=== PATIENT | female | born 1965 | race Caucasian/White ===

== ENCOUNTER → 2018-07-29 | Outpatient (CLI) | payer OTHER ==
[~2018-07-29] MED LIST: ALBU90OI; ALBU90OI6; AMOX500 PO; ASPI325; ASPI325EC; AZIT500 PO; CLIN300 PO; ERGO400; FISH1000 PO; FLUT.05NI; GABA300 PO; Glucophage1000 MG; IBUP800 PO; INSDET100 SC; INSULANPEN SC; LEVO750 PO; LISI5; LISI5 PO; LOVA20 PO; METF500; METF500 PO; METF850 PO; OXYACE5T PO; RXHYDMOR2 PO; RXOXYACE PO; TRAJENTA PO
== END | disposition home or self-care (01) ==
LOC: LAB SHORT 11:28 → PLD 11:28
DX: L60.2 Onychogryphosis (principal); B35.1 Tinea unguium
CPT/HCPCS: 88305; 88312

== ENCOUNTER 2018-09-26 07:40 | Emergency (ER) | payer OTHER ==
[~2018-09-26] VITALS: Ht 172.7 cm; Wt 113.4 kg
[2018-09-26] MEDS ORDERED: INSULANPEN (08:16)
[2018-09-26] MEDS ORDERED: TRAZ50 PO (08:18)
[2018-09-26] MEDS ORDERED: Humalog100 UNIT/3 (08:18)
[2018-09-26] MEDS ORDERED: ASPI81CH PO (08:18)
[2018-09-26] MEDS ORDERED: Mupirocin22 GM TOP (08:31)
== END 2018-09-26 08:49 | disposition home or self-care (01) ==
LOC: ER 07:40
DX: L03.011 Cellulitis of right finger (principal); L08.9 Local infection of the skin and subcutaneous tissue, unspecified; E11.9 Type 2 diabetes mellitus without complications; F17.200 Nicotine dependence, unspecified, uncomplicated; Z91.040 Latex allergy status; Z88.1 Allergy status to other antibiotic agents; Z88.8 Allergy status to other drugs, medicaments and biological substances; Z88.5 Allergy status to narcotic agent; Z79.899 Other long term (current) drug therapy; Z79.82 Long term (current) use of aspirin; Z79.4 Long term (current) use of insulin
CPT/HCPCS: 99283

== ENCOUNTER 2018-12-04 00:03 | Emergency (ER) | payer OTHER ==
[~2018-12-04] VITALS: Ht 175.3 cm; Wt 127.0 kg
[~2018-12-04 00:03] MED LIST changes: +ASPI81CH PO; +Humalog100 UNIT/3; +INSULANPEN; +Mupirocin22 GM TOP; +TRAZ50 PO
[2018-12-04] MEDS ORDERED: MONT10T PO (00:34)
[2018-12-04] MEDS ORDERED: META800 PO (00:54)
[2018-12-04] MEDS ORDERED: DEXA4 PO (00:54)
== END 2018-12-04 01:11 | disposition home or self-care (01) ==
LOC: ER 00:03
DX: M54.12 Radiculopathy, cervical region (principal); E11.9 Type 2 diabetes mellitus without complications; Z88.1 Allergy status to other antibiotic agents; Z88.5 Allergy status to narcotic agent; Z91.040 Latex allergy status; Z79.82 Long term (current) use of aspirin; Z79.4 Long term (current) use of insulin; Z79.899 Other long term (current) drug therapy
CPT/HCPCS: 99283; J1100

== ENCOUNTER → 2019-06-09 | Outpatient (CLI) | payer OTHER ==
[~2019-06-09] MED LIST changes: +DEXA4 PO; +META800 PO; +MONT10T PO
== END | disposition home or self-care (01) ==
LOC: LAB SHORT 15:00 → LAB 15:00
DX: L02.415 Cutaneous abscess of right lower limb (principal)
CPT/HCPCS: 87070; 87075; 87077; 87186; 87205

== ENCOUNTER 2020-08-19 22:18 | Observation (INO) | payer OTHER ==
[~2020-08-19] VITALS: Ht 175.3 cm; Wt 127.0 kg
[~2020-08-19 22:18] MED LIST changes: +Robaxin-750750 MG PO; +Roxicodone5 MG PO
[2020-08-20] MEDS ORDERED: GLIP2.5ER PO (01:38)
[2020-08-20] MEDS ORDERED: METF500 PO (01:38)
--- NOTE | 2020-08-20 04:37 | NUR ---
SHIFT SUMMARY PT NEW ADMIT THIS AM. AAOX4. NPO SINCE MIDNIGHT. PT REPORTING DISCOMFORT INCREASES WITH MOVEMENT, NOT CONTROLLED WELL WITH FENTANYL, AWAITING CALL BACK FROM HOSPITALIST. DENIES NAUSEA/EMESIS. ABD TENDER WITH MINIMAL PALPATION, REPORTING DISCOMFORT ORIGINATED 1-29 IN THE EVENING. PT ORIENTED TO ROOM + CALL LIGHT USE. UP TO USE RESTROOM INDEPEDENTLY. IVF + X1 ABX PER ORDERS. AWAITING LAB RESULTS THIS AM. PT CURRENTLY LAYING IN BED WITH CALL LIGHT IN REACH.
[2020-08-20 05:01] LABS: BASOPHILS ABSOLUTE AUTO 0.03 K/mm3 (0.00-0.23); BASOPHILS PERCENT AUTO 0 % (0-2); EOSINOPHILS ABSOLUTE AUTO 0.04 K/mm3 (0.00-0.68); EOSINOPHILS PERCENT AUTO 0 % (0-6); Hematocrit 36.1 % (33.0-51.0); Hemoglobin 11.7 g/dL (11.5-16.0); IMMATURE GRAN ABSOLUTE AUTO 0.05 K/mm3 (0.00-0.10); IMMATURE GRAN PERCENT AUTO 0 % (0-1); LYMPHOCYTES ABSOLUTE AUTO 1.97 K/mm3 (0.84-5.20); LYMPHOCYTES PERCENT AUTO 16 % (21-46); MONOCYTES ABSOLUTE AUTO 0.68 K/mm3 (0.16-1.47); MONOCYTES PERCENT AUTO 5 % (4-13); Mean Corpuscular HGB 29.5 pg (26.0-34.0); Mean Corpuscular HGB Conc 32.4 g/dL (31.5-36.5); Mean Corpuscular Volume 91 fL (80-100); Mean Platelet Volume 10.4 fL (9.1-12.4); NEUTROPHILS ABSOLUTE AUTO 9.96 K/mm3 (1.96-9.15); NEUTROPHILS PERCENT AUTO 78 % (41-73); Platelet Count 123 K/mm3 (150-400); RDW Coefficient Variation 13.8 % (11.7-14.2); RDW Standard Deviation 46.4 fL (35.1-46.3); Red Blood Cell Count 3.97 M/mm3 (3.80-5.20); White Blood Cell Count 12.73 K/mm3 (4.00-11.30)
[2020-08-20 05:20] LABS: Alanine Aminotransfer (ALT/SGP 52 U/L (12-78); Albumin, Blood 3.4 g/dL (3.4-5.0); Albumin/Globulin Ratio 0.9 (0.8-1.8); Alk Phos 85 U/L (50-136); Anion Gap 9 mmol/L (6-16); Aspartate Aminotrans (AST/SGOT 25 U/L (12-37); Bilirubin, Total 0.8 mg/dL (0.1-1.0); Blood Urea Nitrogen 19 mg/dL (8-24); Bun/Creatinine Ratio 33.5 (12.0-20.0); CO2, Blood 23 mmol/L (21-32); Calcium, Blood 9.2 mg/dL (8.5-10.1); Chloride, Blood 108 mmol/L (98-108); Creatinine, Blood 0.57 mg/dL (0.40-1.00); Globulin, Blood 3.7 g/dL (2.2-4.0); Glomerular Filtration Rate >60 (60-); Glucose, Blood 290 mg/dL (70-99); Potassium, Blood 4.1 mmol/L (3.5-5.5); Sodium, Blood 140 mmol/L (136-145); Total Protein, Blood 7.1 g/dL (6.4-8.2)
--- NOTE | 2020-08-20 08:50 | NUR ---
DR GARCÍA RECENTLY HERE. REPORTED MAY HAVE GABAPENTIN THIS AM WITH SIP OF WATER, REPORTS TO HOLD OTHER AM MEDICATIONS INCLUDING LOVENOX.
--- NOTE | 2020-08-20 09:39 | NUR ---
DR RESTREPO HERE TO SEE PT.
[2020-08-20 10:04] LABS: Influenza A, PCR Negative (NEGATIVE); Influenza B, PCR Negative (NEGATIVE); Resp Syncytial Virus, PCR Negative (NEGATIVE); SARS-Cov-2 (COVID-19) PCR, MMC Negative (NEGATIVE)
--- NOTE | 2020-08-20 13:24 | NUR ---
PT OUT OF ROOM FOR PROCEDURE WITH OTHER STAFF ON [facility]. PT VOIDED. PT CALLED DAUGHTER.
--- NOTE | 2020-08-20 16:37 | NUR ---
PT RECENTLY BACK FROM HAVING PROCEDURE. PT HAD GAUZE DRESSINGS TO ABD. PT DENIES NAUSEA. PT MOVED TO BED WITH MULT ASSIST. FAMILY PRESENT. APPEARS COMFORTABLE WHEN RESTING.
--- NOTE | 2020-08-20 18:05 | NUR ---
DR RESTREPO HERE TO SEE PT, FAMILY WAS PRESENT.
--- NOTE | 2020-08-20 18:24 | NUR ---
SHIFT SUMMARY PT NOT EATING DINNER TONIGHT AT THIS TIME, PT MED FOR CBG PER PT REQ, FAMILY PRESENT AT DINNER. PT HAD PROCEDURE TODAY. PT RESTING QUIETLY RESP E/U. PT ON 3LO2NC AFTER PROCEDURE, REPORTS HAVING HX OF SLEEP APNEA. PT BEEN SEEN BY [employer] TODAY. PT VOIDED WITHOUT DIFFICULTY BEFORE PROCEDURE, NOT VOIDED YET AFTER SURGERY. PT HAS IVF IN PLACE. PT BEEN MED PRN FOR PAIN.
--- NOTE | 2020-08-20 18:27 | NUR ---
PAS IN PLACE TO BLE.
--- NOTE | 2020-08-20 19:03 | NUR ---
REFUSED.PATIENT REQUESTED TO SLEEP
[2020-08-21 04:58] LABS: BASOPHILS ABSOLUTE AUTO 0.02 K/mm3 (0.00-0.23); BASOPHILS PERCENT AUTO 0 % (0-2); EOSINOPHILS PERCENT AUTO 0 % (0-6); Hematocrit 34.8 % (33.0-51.0); Hemoglobin 11.2 g/dL (11.5-16.0); IMMATURE GRAN ABSOLUTE AUTO 0.06 K/mm3 (0.00-0.10); IMMATURE GRAN PERCENT AUTO 1 % (0-1); LYMPHOCYTES ABSOLUTE AUTO 2.23 K/mm3 (0.84-5.20); LYMPHOCYTES PERCENT AUTO 19 % (21-46); MONOCYTES ABSOLUTE AUTO 0.71 K/mm3 (0.16-1.47); MONOCYTES PERCENT AUTO 6 % (4-13); Mean Corpuscular HGB 29.5 pg (26.0-34.0); Mean Corpuscular HGB Conc 32.2 g/dL (31.5-36.5); Mean Corpuscular Volume 92 fL (80-100); Mean Platelet Volume 10.5 fL (9.1-12.4); NEUTROPHILS PERCENT AUTO 74 % (41-73); Platelet Count 119 K/mm3 (150-400); RDW Standard Deviation 47.6 fL (35.1-46.3); White Blood Cell Count 11.72 K/mm3 (4.00-11.30)
[2020-08-21 05:26] LABS: Anion Gap 6 mmol/L (6-16); Blood Urea Nitrogen 20 mg/dL (8-24); Bun/Creatinine Ratio 36.3 (12.0-20.0); CO2, Blood 25 mmol/L (21-32); Calcium, Blood 8.3 mg/dL (8.5-10.1); Chloride, Blood 108 mmol/L (98-108); Creatinine, Blood 0.55 mg/dL (0.40-1.00); Glomerular Filtration Rate >60 (60-); Glucose, Blood 270 mg/dL (70-99); Potassium, Blood 3.8 mmol/L (3.5-5.5); Sodium, Blood 139 mmol/L (136-145)
--- NOTE | 2020-08-21 05:54 | NUR ---
SHIFT SUMMARY POD#1 LAP APPI. AAOX4. DISCOMFORT CONTROLLED WITH 2 NORCO Q4P. NO NAUSEA/EMESIS. ABD INCISIONS WITH GAUZE X3 C/D/I. GOOD PO INTAKE + OUTPUT. IV ABX PER ORDERS. PT UP AMBULATING IN HALLS THIS AM, TOLERATED WELL. PT CURRENTLY RESTING IN BED POST AMBULATION WITH CALL LIGHT IN REACH.
--- NOTE | 2020-08-21 09:05 | NUR ---
DISCUSSED PT'S HOME MEDICATION. DR REPORTS MAY TAKE HOME MEDICATION.
--- NOTE | 2020-08-21 12:55 | NUR ---
PT CONT TO REPORT NOT PASSING GAS YET. PT REPORTS WILL TAKE ANOTHER WALK.
--- NOTE | 2020-08-21 13:30 | NUR ---
DR GARCÍA GIVEN UPDATE PER HER REQ. DISCUSSED PT WALKING BUT NOT PASSING GAS YET. DR GARCÍA REPORTED TO ASK PT IF SHE WOULD LIKE A SUPPOSITORY, PT DECLINED WANTING SUPPOSITORY, REPORTED SHE WOULD CONT TO AMBULATE TO HELP PASS GAS. PT REPORTS BELLY FEELING LESS BLOATED BUT THAT SHE JUST DOESN'T FEEL HERSELF PASS GAS.
[2020-08-21] MEDS ORDERED: Norco 5-325 Ta1 EACH PO (16:04)
--- NOTE | 2020-08-21 16:50 | NUR ---
DR GARCÍA NOTIFIED OF DR RESTREPO WRITING D/C ORDERS. REPORTS TO HAVE PT F/U WITH PCP IN 1-2 WEEKS, WROTE THIS ON HER DISCHARGE INSTRUCTIONS. PT'S IV BEEN OUT. PT DRESSED, WAITING ON FAMILY TO ARRIVE TO GO OVER D/C ORDERS AND GIVE PT RIDE HOME.
--- NOTE | 2020-08-21 17:48 | NUR ---
DISCHARGE: PT RECENTLY DISCHARGED. PT/FAMILY REPORTS UNDERSTANDING OF DISCHARGE INSTRUCTIONS. PT EATING AND DRINKING, VOIDING. REPORTS VOIDING MULT TIMES TODAY. PT TO INCREASE DIET SLOWLY TOLERATED. SCRIPT AND OTHER PAPERWORK SENT WITH PT. BELONGINGS SENT WITH PT. FAMILY TO GIVE PT RIDE HOME.
== END 2020-08-21 17:49 | disposition home or self-care (01) ==
LOC: ER 22:18 → SURS 22:19
PROVIDERS: Internal Medicine; Surgery; ADMIT Internal Medicine
PROC: 0DTJ4ZZ Resection of Appendix, Percutaneous Endoscopic Approach (ICD-10-PCS; principal; 2020-08-20 12:30)
DX: K35.80 Unspecified acute appendicitis (principal); E11.9 Type 2 diabetes mellitus without complications; E66.01 Morbid (severe) obesity due to excess calories; Z72.0 Tobacco use; I10 Essential (primary) hypertension; Z79.4 Long term (current) use of insulin
CPT/HCPCS: 0241U; 36415; 80048; 80053; 82947; 85025; 88304; 96365; 96372; 96374-59; 96375; 96376; 99285-25; A9270; G0378; J0694; J1100; J1170; J1650; J2405; J2704; J3010; J7030; J7120

== ENCOUNTER 2020-09-01 21:45 | Emergency (ER) | payer OTHER ==
[~2020-09-01] VITALS: Ht 175.3 cm; Wt 120.2 kg
[~2020-09-01 21:45] MED LIST changes: +GLIP2.5ER PO; +Norco 5-325 Ta1 EACH PO
== END 2020-09-01 22:47 | disposition home or self-care (01) ==
LOC: ER 21:45
DX: L76.34 Postprocedural seroma of skin and subcutaneous tissue following other procedure (principal); T81.30XA Disruption of wound, unspecified, initial encounter; Z79.4 Long term (current) use of insulin; Z79.899 Other long term (current) drug therapy
CPT/HCPCS: 99282

== ENCOUNTER → 2021-06-22 | Outpatient (CLI) | payer OTHER ==
[2021-06-22 14:49] LABS: BASOPHILS ABSOLUTE AUTO 0.01 K/mm3 (0.00-0.23); BASOPHILS PERCENT AUTO 0 % (0-2); EOSINOPHILS ABSOLUTE AUTO 0.01 K/mm3 (0.00-0.68); EOSINOPHILS PERCENT AUTO 0 % (0-6); Hematocrit 38.5 % (33.0-51.0); IMMATURE GRAN ABSOLUTE AUTO 0.01 K/mm3 (0.00-0.10); IMMATURE GRAN PERCENT AUTO 0 % (0-1); LYMPHOCYTES ABSOLUTE AUTO 0.98 K/mm3 (0.84-5.20); LYMPHOCYTES PERCENT AUTO 27 % (21-46); MONOCYTES ABSOLUTE AUTO 0.19 K/mm3 (0.16-1.47); MONOCYTES PERCENT AUTO 5 % (4-13); Mean Corpuscular HGB 29.2 pg (26.0-34.0); Mean Corpuscular HGB Conc 33.8 g/dL (31.5-36.5); Mean Corpuscular Volume 87 fL (80-100); Mean Platelet Volume 10.5 fL (9.1-12.4); NEUTROPHILS ABSOLUTE AUTO 2.46 K/mm3 (1.96-9.15); NEUTROPHILS PERCENT AUTO 67 % (41-73); Platelet Count 110 K/mm3 (150-400); RDW Coefficient Variation 13.5 % (11.7-14.2); RDW Standard Deviation 42.5 fL (35.1-46.3); Red Blood Cell Count 4.45 M/mm3 (3.80-5.20); White Blood Cell Count 3.66 K/mm3 (4.00-11.30)
[2021-06-22 14:53] LABS: Anion Gap 12 mmol/L (6-16); Blood Urea Nitrogen 10 mg/dL (8-24); Bun/Creatinine Ratio 15.9 (12.0-20.0); CO2, Blood 25 mmol/L (21-32); Calcium, Blood 8.7 mg/dL (8.5-10.1); Chloride, Blood 101 mmol/L (98-108); Creatinine, Blood 0.63 mg/dL (0.40-1.00); Glomerular Filtration Rate >60 (60-); Glucose, Blood 209 mg/dL (70-99); Potassium, Blood 3.8 mmol/L (3.5-5.5); Sodium, Blood 138 mmol/L (136-145)
== END | disposition home or self-care (01) ==
LOC: LAB 14:44 → LAB SHORT 14:44
PROVIDERS: Physician Assistant Surgical
DX: E86.0 Dehydration (principal)
CPT/HCPCS: 80048; 85025

== ENCOUNTER → 2021-08-15 | Outpatient (CLI) | payer OTHER | END | disposition home or self-care (01) | LOC: LAB SHORT 09:48 | DX: N39.0 Urinary tract infection, site not specified (principal) | CPT/HCPCS: 87077; 87086; 87186 ==

== ENCOUNTER 2021-11-16 18:23 | Emergency (ER) | payer OTHER ==
[~2021-11-16] VITALS: Ht 175.3 cm; Wt 127.0 kg
== END 2021-11-16 20:40 | disposition home or self-care (01) ==
LOC: ER 18:23
DX: M79.604 Pain in right leg (principal); Z88.0 Allergy status to penicillin; Z91.040 Latex allergy status; E11.9 Type 2 diabetes mellitus without complications; Z79.4 Long term (current) use of insulin; F17.200 Nicotine dependence, unspecified, uncomplicated
CPT/HCPCS: 93971; 99283-25

== ENCOUNTER → 2022-03-14 | Outpatient (CLI) | payer OTHER ==
[2022-03-14 18:59] LABS: Appearance, Urine Clear (Clear); Bilirubin, Urine Neg (Neg); Blood, Urine Neg (Neg); Color, Urine Yellow (P-Yellow); Glucose Qualitative, Urine 4+ (Neg); Ketones, Urine 1+ (Neg); Leukocyte Esterase, Urine Neg (Neg); Nitrite, Urine Neg (Neg); Protein, Urine Neg (Neg); Specific Gravity, Urine 1.025 (1.003-1.022); Urobilinogen, Urine NORM (Normal)
== END | disposition home or self-care (01) ==
LOC: LAB SHORT 15:00
PROVIDERS: Registered Nurse
DX: R35.0 Frequency of micturition (principal); R39.15 Urgency of urination
CPT/HCPCS: 81003

== ENCOUNTER → 2022-05-30 | Outpatient (CLI) | payer OTHER ==
[~2022-05-30] MED LIST changes: +OMEP20ER PO; +ONDA4ODT MM; +PRED20 PO; +PROM25 PO; +SUCR1 PO
== END ==
LOC: LAB SHORT 14:38 → LAB 14:38
DX: B35.0 Tinea barbae and tinea capitis (principal)
CPT/HCPCS: 87102

== ENCOUNTER 2022-06-03 03:18 | Emergency (ER) | payer OTHER ==
[~2022-06-03] VITALS: Ht 175.3 cm; Wt 129.3 kg
[~2022-06-03 03:18] MED LIST changes: -OMEP20ER PO; -ONDA4ODT MM; -PRED20 PO; -PROM25 PO; -SUCR1 PO
[2022-06-03 04:14] LABS: BASOPHILS ABSOLUTE AUTO 0.03 K/mm3 (0.00-0.23); BASOPHILS PERCENT AUTO 0 % (0-2); EOSINOPHILS ABSOLUTE AUTO 0.02 K/mm3 (0.00-0.68); EOSINOPHILS PERCENT AUTO 0 % (0-6); Hematocrit 43.7 % (33.0-51.0); Hemoglobin 14.3 g/dL (11.5-16.0); IMMATURE GRAN ABSOLUTE AUTO 0.08 K/mm3 (0.00-0.10); IMMATURE GRAN PERCENT AUTO 1 % (0-1); LYMPHOCYTES ABSOLUTE AUTO 1.89 K/mm3 (0.84-5.20); LYMPHOCYTES PERCENT AUTO 23 % (21-46); MONOCYTES ABSOLUTE AUTO 0.25 K/mm3 (0.16-1.47); MONOCYTES PERCENT AUTO 3 % (4-13); Mean Corpuscular HGB 28.7 pg (26.0-34.0); Mean Corpuscular HGB Conc 32.7 g/dL (31.5-36.5); Mean Corpuscular Volume 88 fL (80-100); NEUTROPHILS ABSOLUTE AUTO 5.89 K/mm3 (1.96-9.15); NEUTROPHILS PERCENT AUTO 72 % (41-73); Platelet Count 185 K/mm3 (150-400); RDW Coefficient Variation 13.5 % (11.7-14.2); RDW Standard Deviation 43.3 fL (35.1-46.3); Red Blood Cell Count 4.98 M/mm3 (3.80-5.20); White Blood Cell Count 8.16 K/mm3 (4.00-11.30)
[2022-06-03 04:35] LABS: Albumin, Blood 3.2 g/dL (3.4-5.0); Albumin/Globulin Ratio 0.8 (0.8-1.8); Bilirubin, Direct 0.4 mg/dL (0.0-0.3); Bilirubin, Indirect 0.9 mg/dL (0.1-0.7); Bilirubin, Total 1.3 mg/dL (0.1-1.0); Bun/Creatinine Ratio 59.5 (12.0-20.0); Calcium, Blood 9.4 mg/dL (8.5-10.1); Creatinine, Blood 0.49 mg/dL (0.40-1.00); Globulin, Blood 3.8 g/dL (2.2-4.0); Magnesium, Blood 1.9 mg/dL (1.6-2.4); Potassium, Blood 4.4 mmol/L (3.5-5.5)
[2022-06-03 04:55] LABS: Influenza A, PCR NEGATIVE (NEGATIVE); Influenza B, PCR NEGATIVE (NEGATIVE); Resp Syncytial Virus, PCR NEGATIVE (NEGATIVE); SARS-Cov-2 (COVID-19) PCR, MMC NEGATIVE (NEGATIVE)
[2022-06-03] MEDS ORDERED: ONDA4ODT MM ×4 (05:24→05:25)
[2022-06-03] MEDS ORDERED: PRED20 PO ×4 (05:24→05:25)
[2022-06-04] MEDS ORDERED: SUCR1 PO (13:12)
[2022-06-04] MEDS ORDERED: OMEP20ER PO (13:12)
[2022-06-04] MEDS ORDERED: PROM25 PO (13:12)
== END 2022-06-03 06:02 | disposition home or self-care (01) ==
LOC: ER 03:18
PROVIDERS: Student in an Organized Health Care Education/Training Program
DX: L50.0 Allergic urticaria (principal); T36.8X5A Adverse effect of other systemic antibiotics, initial encounter; I10 Essential (primary) hypertension; E11.9 Type 2 diabetes mellitus without complications; Z88.0 Allergy status to penicillin; Z88.5 Allergy status to narcotic agent; Z91.040 Latex allergy status; Z79.4 Long term (current) use of insulin; Z79.82 Long term (current) use of aspirin; Z20.822 Contact with and (suspected) exposure to COVID-19
CPT/HCPCS: 0241U; 71046; 80048; 80076; 83690; 83735; 85025; A9270; J1200; J2405; J2930; J7030

== ENCOUNTER 2022-06-04 05:51 | Emergency (ER) | payer OTHER ==
[~2022-06-04] VITALS: Ht 175.3 cm; Wt 129.3 kg
[~2022-06-04 05:51] MED LIST changes: +ONDA4ODT MM; +PRED20 PO
[2022-06-04 07:23] LABS: BASOPHILS ABSOLUTE AUTO 0.01 K/mm3 (0.00-0.23); BASOPHILS PERCENT AUTO 0 % (0-2); EOSINOPHILS ABSOLUTE AUTO 0.01 K/mm3 (0.00-0.68); EOSINOPHILS PERCENT AUTO 0 % (0-6); Hematocrit 39.2 % (33.0-51.0); Hemoglobin 13.5 g/dL (11.5-16.0); IMMATURE GRAN ABSOLUTE AUTO 0.05 K/mm3 (0.00-0.10); IMMATURE GRAN PERCENT AUTO 1 % (0-1); LYMPHOCYTES ABSOLUTE AUTO 2.57 K/mm3 (0.84-5.20); LYMPHOCYTES PERCENT AUTO 29 % (21-46); MONOCYTES ABSOLUTE AUTO 0.57 K/mm3 (0.16-1.47); MONOCYTES PERCENT AUTO 7 % (4-13); Mean Corpuscular HGB 29.7 pg (26.0-34.0); Mean Corpuscular HGB Conc 34.4 g/dL (31.5-36.5); Mean Corpuscular Volume 86 fL (80-100); Mean Platelet Volume 10.4 fL (9.1-12.4); NEUTROPHILS PERCENT AUTO 64 % (41-73); Platelet Count 224 K/mm3 (150-400); RDW Coefficient Variation 13.4 % (11.7-14.2); RDW Standard Deviation 41.9 fL (35.1-46.3); Red Blood Cell Count 4.55 M/mm3 (3.80-5.20); White Blood Cell Count 8.81 K/mm3 (4.00-11.30)
[2022-06-04 07:29] LABS: Albumin, Blood 2.9 g/dL (3.4-5.0); Albumin/Globulin Ratio 0.8 (0.8-1.8); Bilirubin, Total 0.5 mg/dL (0.1-1.0); Bun/Creatinine Ratio 89.8 (12.0-20.0); Calcium, Blood 8.8 mg/dL (8.5-10.1); Creatinine, Blood 0.42 mg/dL (0.40-1.00); Globulin, Blood 3.6 g/dL (2.2-4.0); Potassium, Blood 3.8 mmol/L (3.5-5.5); Total Protein, Blood 6.5 g/dL (6.4-8.2)
[2022-06-04 07:35] LABS: Source, Urine Straight Cath
[2022-06-04 07:40] LABS: Bilirubin, Urine Neg (Neg); Blood, Urine Neg (Neg); Glucose Qualitative, Urine 4+ (Neg); Ketones, Urine 3+ (Neg); Leukocyte Esterase, Urine Neg (Neg); Nitrite, Urine Neg (Neg); Protein, Urine Neg (Neg); Urobilinogen, Urine NORM (Normal)
[2022-06-04 07:54] LABS: Appearance, Urine Clear (Clear); Color, Urine Yellow (P-Yellow)
[2022-06-04] MEDS ORDERED: PROM25 PO (13:12)
[2022-06-04] MEDS ORDERED: OMEP20ER PO (13:12)
[2022-06-04] MEDS ORDERED: SUCR1 PO (13:12)
== END 2022-06-04 14:18 | disposition home or self-care (01) ==
LOC: ER 05:51
PROVIDERS: Emergency Medicine
DX: K29.70 Gastritis, unspecified, without bleeding (principal); K20.90 Esophagitis, unspecified without bleeding
CPT/HCPCS: 36415; 80053; 81003; 82947; 83605; 83690; 84484; 85025; 93005; 93010; A9270; C9113; J1790; J2405; J2550; J3010; J7030

== ENCOUNTER → 2022-09-13 | Outpatient (CLI) | payer OTHER ==
[~2022-09-13] MED LIST changes: +OMEP20ER PO; +PROM25 PO; +SUCR1 PO
== END | disposition home or self-care (01) ==
LOC: LAB SHORT 10:56
DX: N39.0 Urinary tract infection, site not specified (principal)
CPT/HCPCS: 87077; 87086; 87186

== ENCOUNTER → 2022-10-03 | Outpatient (CLI) | payer OTHER | END | disposition home or self-care (01) | LOC: LAB SHORT 09:29 → LAB 09:29 | DX: N39.0 Urinary tract infection, site not specified (principal) | CPT/HCPCS: 87077; 87086; 87147; 87186 ==

== ENCOUNTER → 2023-01-30 | Outpatient (CLI) | payer OTHER ==
[2023-01-30 17:48] LABS: Source, Urine Voided
[2023-01-30 19:10] LABS: Appearance, Urine Hazy (Clear); Bilirubin, Urine Neg (Neg); Blood, Urine 2+ (Neg); Color, Urine Yellow (P-Yellow); Glucose Qualitative, Urine 4+ (Neg); Ketones, Urine Neg (Neg); Leukocyte Esterase, Urine 3+ (Neg); Nitrite, Urine Neg (Neg); Protein, Urine 2+ (Neg); Specific Gravity, Urine 1.015 (1.003-1.022); Urobilinogen, Urine NORM (Normal)
[2023-01-30 20:05] LABS: White Blood Cells, Urine 50-100 /hpf (0-5)
[2023-01-30 20:06] LABS: Bacteria Many /hpf; Squamous Epithelial Cells Few /hpf (Few)
== END ==
LOC: LAB 17:45 → LAB SHORT 17:45
PROVIDERS: Registered Nurse
DX: R30.0 Dysuria (principal); R35.0 Frequency of micturition
CPT/HCPCS: 81001; 87077; 87086; 87186

== ENCOUNTER → 2023-04-19 | Outpatient (CLI) | payer OTHER | END | disposition home or self-care (01) | LOC: LAB SHORT 10:00 → LAB 10:00 | DX: N39.0 Urinary tract infection, site not specified (principal) | CPT/HCPCS: 87077; 87086; 87186 ==

== ENCOUNTER → 2023-05-21 | Outpatient (CLI) | payer OTHER | END | disposition home or self-care (01) | LOC: LAB 13:52 → LAB SHORT 13:52 | DX: N39.0 Urinary tract infection, site not specified (principal) | CPT/HCPCS: 87086 ==

== ENCOUNTER 2025-05-25 18:11 | Emergency (ER) | payer OTHER ==
[~2025-05-25] VITALS: Ht 175.3 cm; Wt 113.4 kg
[~2025-05-25 18:11] MED LIST changes: +Ativan1 MG; +FARXIGA10 MG; +Lisinopril2.5 MG; +OZEMPIC0.25 MG/02; +TRAZ50
[2025-05-25 18:17] VITALS: BP 163/90
[2025-05-25] MEDS ORDERED: Ketorolac Tromethamine 15mg Vial IM ONE (18:25)
[2025-05-25] MEDS ORDERED: RX Prepack 6 Tabs Oxycodone 5mg UD ONE (18:25)
== END 2025-05-25 18:46 | disposition home or self-care (01) ==
LOC: ER 18:11
DX: M54.16 Radiculopathy, lumbar region (principal); E11.9 Type 2 diabetes mellitus without complications; I10 Essential (primary) hypertension; J45.909 Unspecified asthma, uncomplicated; Z88.1 Allergy status to other antibiotic agents; Z88.0 Allergy status to penicillin; Z88.8 Allergy status to other drugs, medicaments and biological substances; Z91.040 Latex allergy status; Z88.5 Allergy status to narcotic agent; Z79.82 Long term (current) use of aspirin; Z79.85 Long-term (current) use of injectable non-insulin antidiabetic drugs; Z79.899 Other long term (current) drug therapy
CPT/HCPCS: 96372; 99282-25; A9270; J1885

== ENCOUNTER 2025-06-22 20:51 | Emergency (ER) | payer OTHER ==
[~2025-06-22] VITALS: Ht 175.3 cm; Wt 108.9 kg
[2025-06-22] MEDS ORDERED: Ondansetron HCl 2 MG / ML 2ML Vial IV ONE (21:05)
[2025-06-22 21:09] LABS: BASOPHILS ABSOLUTE AUTO 0.06 K/mm3 (0.00-0.23); BASOPHILS PERCENT AUTO 0 % (0-2); EOSINOPHILS ABSOLUTE AUTO 0.10 K/mm3 (0.00-0.68); EOSINOPHILS PERCENT AUTO 1 % (0-6); Hematocrit 42.0 % (33.0-51.0); Hemoglobin 14.3 g/dL (11.5-16.0); IMMATURE GRAN ABSOLUTE AUTO 0.09 K/mm3 (0.00-0.10); IMMATURE GRAN PERCENT AUTO 1 % (0-1); LYMPHOCYTES ABSOLUTE AUTO 2.69 K/mm3 (0.84-5.20); LYMPHOCYTES PERCENT AUTO 20 % (21-46); MONOCYTES ABSOLUTE AUTO 0.50 K/mm3 (0.16-1.47); MONOCYTES PERCENT AUTO 4 % (4-13); Mean Corpuscular HGB Conc 34.0 g/dL (31.5-36.5); Mean Corpuscular Volume 84 fL (80-100); NEUTROPHILS ABSOLUTE AUTO 10.22 K/mm3 (1.96-9.15); NEUTROPHILS PERCENT AUTO 75 % (41-73); NRBC ABSOLUTE 0.00 K/mm3 (0.00-0.02); NRBC Auto 0.0 /100 WBC (0.0-0.2); Platelet Count 220 K/mm3 (150-400); RDW Coefficient Variation 13.0 % (11.7-14.2); RDW Standard Deviation 39.8 fL (35.1-46.3)
[2025-06-22 21:35] LABS: Alanine Aminotransfer (ALT/SGP 42.0 U/L (12-78); Albumin, Blood 3.7 g/dL (3.4-5.0); Albumin/Globulin Ratio 0.8 (0.8-1.8); Anion Gap 13.0 mmol/L (3-11); Aspartate Aminotrans (AST/SGOT 42.0 U/L (12-37); Bilirubin, Total 0.9 mg/dL (0.1-1.0); Blood Urea Nitrogen 19.0 mg/dL (8-24); CO2, Blood 22.0 mmol/L (21-32); Calcium, Blood 9.5 mg/dL (8.5-10.1); Chloride, Blood 101.0 mmol/L (98-108); Creatinine, Blood 0.58 mg/dL (0.40-1.00); Globulin, Blood 4.4 g/dL (2.2-4.0); Glucose, Blood 351.0 mg/dL (70-99); Potassium, Blood 4.9 mmol/L (3.5-5.5); Sodium, Blood 131.0 mmol/L (136-145); Total Protein, Blood 8.1 g/dL (6.4-8.2)
[2025-06-22] MEDS ORDERED: RX Prepack 2 Tabs Ondansetron ODT 4MG UD ONE (23:05)
[2025-06-22 23:30] VITALS: BP 168/84
[2025-06-22] MEDS ORDERED: Ondansetron HCl 2 MG / ML 2ML Vial IV STA (23:44)
== END 2025-06-22 23:50 | disposition home or self-care (01) ==
LOC: ER 20:51
PROVIDERS: Student in an Organized Health Care Education/Training Program
DX: R11.2 Nausea with vomiting, unspecified (principal); T40.495A Adverse effect of other synthetic narcotics, initial encounter; Z88.1 Allergy status to other antibiotic agents; Z88.8 Allergy status to other drugs, medicaments and biological substances; Z91.040 Latex allergy status; Z79.82 Long term (current) use of aspirin; E11.9 Type 2 diabetes mellitus without complications; J45.909 Unspecified asthma, uncomplicated; I10 Essential (primary) hypertension
CPT/HCPCS: 80053; 85025; 96374; 96376; 99284-25; A9270; J2405